=== PATIENT | male | born 1940 | race African-American/Black ===

== ENCOUNTER 2019-05-08 12:25 | Emergency (ER) | payer SELFPAY ==
[~2019-05-08] VITALS: Ht 185.4 cm; Wt 80.0 kg
[2019-05-08] MEDS ORDERED: LISINOPRIL PO (12:42)
[2019-05-08] MEDS ORDERED: METFORMIN PO (12:42)
--- NOTE | 2019-05-08 12:43 | NUR ---
PT IN BY [facility] - PT IN HOSPITAL W, ON VITALS MONITORS. MED REQ UPDATED BEST PT COULD RECALL, PT STATED HE HAS MEMORY LAPSES AT TIMES. PER [facility]- FSBS 273. ERP IN NOW EVALUATING PT. CALL LIGHT WITHIN REACH.
--- NOTE | 2019-05-08 13:01 | NUR ---
PT ABLE TO PROVIDE URINE SAMPLE, URINE TAKEN TO LAB. PT GOING TO RAD AT THIS TIME.
[2019-05-08 13:21] LABS: ALBUMIN 3.3 g/dL (3.4-5.0); ANION GAP 5 mmol/L (5-15); CHLORIDE 109 mmol/L (98-107); CREATININE 1.73 mg/dL (0.7-1.3); INTERNATIONAL NORMALIZED RATIO 0.95 (0.93-1.1)
[2019-05-08 13:32] LABS: CULTURE INDICATED? YES; MICROSCOPIC INDICATED
[2019-05-08 13:33] LABS: MEAN CORPUSCULAR HEMOGLOBIN 31.5 pg (27.5-34.5); MEAN CORPUSCULAR HGB CONC 32.8 g/dL (33.2-36.2); MEAN CORPUSCULAR VOLUME 96.1 fL (81-97); MEAN PLATELET VOLUME 9.7 fL (7.4-10.4); PLATELET COUNT 267 x10^3/uL (130-400); RED BLOOD COUNT 3.78 x10^6/uL (4.38-5.82); RED CELL DISTRIBUTION WIDTH 12.3 % (9.4-14.8)
[2019-05-08 13:54] LABS: BASOPHILS # (AUTO) 0.02 x10^3/uL (0-0.1); BASOPHILS % (AUTO) 1 % (0-1); EOSINOPHILS # (AUTO) 0.19 x10^3/uL (0-0.4); EOSINOPHILS % (AUTO) 4 % (1-7); LYMPHOCYTES # (AUTO) 1.03 x10^3/uL (1-3.4); LYMPHOCYTES % (AUTO) 24 % (22-44); MD SCAN; MONOCYTES # (AUTO) 0.52 x10^3/uL (0.2-0.8); MONOCYTES % (AUTO) 12 % (2-9); NEUTROPHILS # (AUTO) 2.58 x10^3/uL (1.8-6.8); NEUTROPHILS % (AUTO) 59 % (42-75)
[2019-05-08 14:54] VITALS: BP 145/67
== END 2019-05-08 14:58 | disposition home or self-care (01) ==
LOC: ED 14:52
DX: N30.01 Acute cystitis with hematuria (principal); I10 Essential (primary) hypertension; E11.9 Type 2 diabetes mellitus without complications
CPT/HCPCS: 36415; 74176; 80048; 81001; 82040; 85025; 85610; 85730; 87086; 87147; 99284